=== PATIENT | male | born 1950 | race Caucasian/White ===

== ENCOUNTER → 2018-02-06 | Outpatient (CLI) | payer MEDICARE, BC ==
--- NOTE | 2018-02-07 08:56 | RADIOLOGY REPORT (SQ) ---
EXAM DESCRIPTION: MRI RT UPPER JOINT WITHOUT COMPLETED DATE/TIME: 02/06/2018 4:25 pm REASON FOR STUDY: M25.511 PAIN IN RIGHT SHOULDER M25.511 PAIN IN RIGHT SHOULDER COMPARISON: None. TECHNIQUE: Right shoulder images acquired and stored on PACS. Multiplanar imaging to include fat sen sitive sequences such as T1, water sensitive sequences such as FST2/STIR, cartilage sensitive sequenc es such as FSPD/gradient-echo sequences. LIMITATIONS: None. FINDINGS: BONE MARROW AND CORTEX: No worrisome bone lesions or marrow replacement. No occult fractur es. JOINT OR BURSAL EFFUSION: Joint effusion communicates with the subacromial subdeltoid bursa. GLENO-HUMERAL ARTICULATION: Superior migration humeral head. No focal chondral lesions detected. ACROMION AND AC JOINT: Hypertrophic overgrowth, moderate. Loss of the subacromial space with remod eling of the undersurface of the acromion. ROTATOR CUFF AND INTERVAL: Full-thickness full width cuff tear of the supraspinatus and infraspinatus . Retraction to the level of the glenohumeral joint. Limited assessment for atrophy given the degre e of retraction. LABRUM AND BICEPS LABRAL COMPLEX: Limited assessment. Biceps tendon looks grossly intact within th e biceps groove. Note is made of some spurring off the lesser tuberosity which may impinge on the bi ceps tendon. REMAINDER OF LABRUM AND IGHL : Grossly intact. PERIARTICULAR AND ADJACENT SOFT TISSUES: No axillary adenopathy or regional mass. OTHER: No other significant finding. IMPRESSION: 1. Full-thickness full width cuff tear with retraction. 2. Other findings as above. TECHNICAL DOCUMENTATION: JOB ID: [id number] All Rights Reserved Reading location - IP/workstation name: [email or web address]
== END ==
LOC: RAD 15:09
PROVIDERS: ATTEND Physician Assistant
DX: M25.511 Pain in right shoulder (principal); M75.121 Complete rotator cuff tear or rupture of right shoulder, not specified as traumatic